=== PATIENT | male | born 1960 | race Caucasian/White ===

== ENCOUNTER 2020-02-11 13:39 | Inpatient (IN) | payer OTHER ==
[~2020-02-11] VITALS: Ht 172.7 cm; Wt 81.7 kg
[2020-02-11] VITALS (393 sets, daily range): BP systolic 97–144; BP diastolic 73–102; PULSE 66–102; TEMP 97.2–98.8; O2SAT 84–100
[2020-02-11 14:01] LABS: BASO % 0.3 % (0.0-2.0); EOS % 0.4 % (0-4.0); GRAN # 4.1 (1.4-6.5); GRAN % 59.9 % (42.2-75.2); HEMOGLOBIN 14.8 g/dl (13.5-18.0); LYMPH % 29.5 % (20.0-51.0); MEAN CELL VOLUME 89 fl (80.0-100.0); MEAN CORPUSCULAR HEMOGLOBIN 31 pg (27.0-31.0); MEAN CORPUSCULAR HGB CONC 34 g/dl (33.0-37.0); MEAN PLATELET VOLUME 9.2 fl (7.4-10.4); MONO # 0.7 (0.1-0.6); MONO % 9.6 % (1.7-9.3); PLATELET COUNT 299 K/mm3 (130-400); RED BLOOD COUNT 4.83 M/mm3 (4.20-5.60); REDCELL DISTRIBUTION WIDTH-CV 12.8 % (11.5-14.5)
[2020-02-11 14:06] LABS: PROTHROMBIN TIME 11.2 SECONDS (9.7-12.8)
[2020-02-11 14:09] LABS: PARTIAL THROMBOPLASTIN TIME 29.8 SECONDS (26.0-37.0)
[2020-02-11 14:13] LABS: ALBUMIN 4.5 gm/dL (3.5-5.0); CALCIUM 9.5 mg/dL (8.4-10.2); CREATININE, serum 1.15 (0.66-1.25); POTASSIUM 3.4 mmol/L (3.4-5.0)
[2020-02-11 14:27] LABS: TROPONIN-I 0.298 ng/mL (0.000-0.035)
--- NOTE | 2020-02-11 17:15 | NUR ---
Recieved report from JAIME Lopez in [facility]. Bringing patient over to room ICU4.
--- NOTE | 2020-02-11 17:25 | NUR ---
Bedside report given JAIME Graff. Pt continues to rest comfortably. Denies chest pain. C/o mild discomfort to rt groin. Area remains soft to palpation, and dressing is clean, dry and intact. Pt will be taken to ICU 4 for inpt stay.
[2020-02-12] VITALS (593 sets, daily range): BP systolic 90–125; BP diastolic 46–84; PULSE 66–78; TEMP 97.2–99.1; O2SAT 82–100
[2020-02-12 05:44] LABS: BASO % 0.2 % (0.0-2.0); GRAN # 6.9 (1.4-6.5); GRAN % 78.4 % (42.2-75.2); HEMATOCRIT 40.6 % (42.0-52.0); HEMOGLOBIN 13.5 g/dl (13.5-18.0); LYMPH # 1.2 (1.2-3.4); LYMPH % 14.2 % (20.0-51.0); MEAN CELL VOLUME 90 fl (80.0-100.0); MEAN CORPUSCULAR HEMOGLOBIN 30 pg (27.0-31.0); MEAN CORPUSCULAR HGB CONC 33 g/dl (33.0-37.0); MEAN PLATELET VOLUME 8.8 fl (7.4-10.4); MONO # 0.6 (0.1-0.6); MONO % 7.1 % (1.7-9.3); PLATELET COUNT 243 K/mm3 (130-400); RED BLOOD COUNT 4.53 M/mm3 (4.20-5.60); REDCELL DISTRIBUTION WIDTH-CV 12.9 % (11.5-14.5)
[2020-02-12 06:10] LABS: CALCIUM 8.1 mg/dL (8.4-10.2); CHOLESTEROL RISK RATIO 4.1; CREATININE, serum 0.93 (0.66-1.25); POTASSIUM 4.3 mmol/L (3.4-5.0)
--- NOTE | 2020-02-12 07:26 | NUR ---
PT slept on and off throughout the night, had only 1 episode of "slight chest discomfort" that passed fairly quickly per PT. No episodes since. R groin cath site is clean, dry and intact with no bleeding or hematoma noted. Report given to JAIME Jara.
--- NOTE | 2020-02-12 07:58 | NUR ---
Patient resting in bed finishing up his breakfast. Patient reports minimal chest pain; rating 2/10 on the pain scale. Patient is alert and oriented x 3. Conversational he now understands the severity of what happened yesterday and is glad to have come to the hospital. Skin w/d. Color pale/pink. Lungs CTA resp even/unlabored. Abd soft with bowel sounds x 4 quads. PPP bilaterally. No pedal edema noted. Dressing to right groin without drainage. Site is soft & slightly tender. Patient given AM medications; explained purpose of each medication and that he would be going home with these medications post heart cath. He denies any questions. Appetite good. Call light within reach. No other needs at this time
--- NOTE | 2020-02-12 09:44 | NUR ---
Ultrasound here to perform ordered echo.
--- NOTE | 2020-02-12 10:17 | NUR ---
Report given to JAIME Manrique on the surgical floor. Patient placed on tele. 03/[address] Medina. Patient taken via w/c to the surgical floor. Room 329
--- NOTE | 2020-02-12 10:30 | NUR ---
Patient arrived to floor via wheelchair. He is alert and oriented. Has some pain to right groin when when checking the sites. Groin site is soft, no hard edges. No redness or bruising noted. Patient is alert and oriented. No other changes at this time. Call light within reach.
--- NOTE | 2020-02-12 18:30 | NUR ---
Patient has been doing well this afternoon. He has been napping most the time. His son came by to visit. No complaints of pain, just some soreness to right groin. Denies nausea. Dr Mayers seen patient and removed the dressing from the groin site. No other changes at this time. Call light within reach.
[2020-02-13 04:32] VITALS: BP 95/55; PULSE 67; TEMP 99.1
[2020-02-13 07:24] LABS: BASO % 0.1 % (0.0-2.0); EOS % 0.3 % (0-4.0); GRAN # 5.3 (1.4-6.5); GRAN % 75.2 % (42.2-75.2); HEMATOCRIT 41.8 % (42.0-52.0); LYMPH # 1.1 (1.2-3.4); LYMPH % 15.3 % (20.0-51.0); MEAN CELL VOLUME 90 fl (80.0-100.0); MEAN CORPUSCULAR HEMOGLOBIN 30 pg (27.0-31.0); MEAN CORPUSCULAR HGB CONC 34 g/dl (33.0-37.0); MEAN PLATELET VOLUME 9.2 fl (7.4-10.4); MONO # 0.6 (0.1-0.6); MONO % 8.8 % (1.7-9.3); PLATELET COUNT 216 K/mm3 (130-400); RED BLOOD COUNT 4.63 M/mm3 (4.20-5.60)
[2020-02-13 07:31] VITALS: BP 89/59; PULSE 71; TEMP 98.6
[2020-02-13 07:33] LABS: CALCIUM 8.6 mg/dL (8.4-10.2); CREATININE, serum 0.93 (0.66-1.25)
[2020-02-13] MEDS ORDERED: BRILINTA90 MG PO (08:24)
[2020-02-13] MEDS ORDERED: LIPITOR 80MG80 MG PO (08:24)
[2020-02-13] MEDS ORDERED: LOPRESSOR 225 MG/TAB PO (08:25)
[2020-02-13] MEDS ORDERED: ASPIRIN E.C. 8181 MG PO (08:25)
[2020-02-13] MEDS ORDERED: NITROSTAT0.4 MG/TAB SL (08:27)
--- NOTE | 2020-02-13 10:41 | NUR ---
PT REMOVED FROM TELE AND YANET IV'S REMOVED. DISCHARGE PACKET REVIEWED, EDUCATION REVIEWED, MEDICATIONS REVEIWED. PT DENIED QUESTIONS, NURSE ASSISTED PT OUT TO PRIVATE VEHICLE DRIVEN BY SPOUSE TO HOME. ALL BELONGINGS GATHERED BY PT. DISCUSSED WITH PT THAT [employer] WOULD BE DETERMINED NECESSARY BY OUTPATIENT AND THEY WOULD DISCUSS IT WITH PT IN MORE DEPTH. DISCUSSED PICKING UP MEDICATIONS FROM THE PHARMACY.
== END 2020-02-13 10:10 | disposition home or self-care (01) | DRG 247 ==
LOC: COL.ER 13:39 → ICU 14:15 → JCC 02-12 10:40
PROVIDERS: Nurse Practitioner Family; ADMIT Family Medicine
PROC: 027034Z Dilation of Coronary Artery, One Artery with Drug-eluting Intraluminal Device, Percutaneous Approach (ICD-10-PCS; principal; 2020-02-11)
PROC: 02C03ZZ Extirpation of Matter from Coronary Artery, One Artery, Percutaneous Approach (ICD-10-PCS; 2020-02-11)
PROC: 4A023N7 Measurement of Cardiac Sampling and Pressure, Left Heart, Percutaneous Approach (ICD-10-PCS; 2020-02-11)
PROC: B2111ZZ Fluoroscopy of Multiple Coronary Arteries using Low Osmolar Contrast (ICD-10-PCS; 2020-02-11)
DX: I21.09 ST elevation (STEMI) myocardial infarction involving other coronary artery of anterior wall (principal); I50.20 Unspecified systolic (congestive) heart failure; I11.0 Hypertensive heart disease with heart failure; R73.03 Prediabetes
CPT/HCPCS: 99222-AI; 99233-AI; 99239; C9600; J0583; J1644; J2001; J2270; J2405; J7030

== ENCOUNTER 2020-03-17 20:03 | Emergency (ER) | payer OTHER ==
[~2020-03-17] VITALS: Ht 172.7 cm; Wt 72.7 kg
[~2020-03-17 20:03] MED LIST: ASPIRIN E.C. 8181 MG PO; BRILINTA90 MG PO; LIPITOR 80MG80 MG PO; LOPRESSOR 225 MG/TAB PO; NITROSTAT0.4 MG/TAB SL
[2020-03-17] MEDS ORDERED: DECADRON6 MG PO (20:42)
[2020-03-17] MEDS ORDERED: PROAIR HFA0.09 MG/AC IH (20:42)
[2020-03-17 21:40] VITALS: BP 94/66; PULSE 76; TEMP 98.7
== END 2020-03-17 21:41 | disposition home or self-care (01) ==
LOC: COL.ER 20:03
DX: U07.1 COVID-19 (principal); I21.3 ST elevation (STEMI) myocardial infarction of unspecified site; I25.10 Atherosclerotic heart disease of native coronary artery without angina pectoris; Z88.1 Allergy status to other antibiotic agents; Z79.02 Long term (current) use of antithrombotics/antiplatelets; Z79.82 Long term (current) use of aspirin
CPT/HCPCS: J1100

== ENCOUNTER → 2021-04-23 | Outpatient (CLI) | payer OTHER ==
[~2021-04-23] MED LIST changes: +DECADRON6 MG PO; +PROAIR HFA0.09 MG/AC IH
== END ==
LOC: COL.RAD 07:37
DX: M19.011 Primary osteoarthritis, right shoulder (principal); M25.811 Other specified joint disorders, right shoulder